=== PATIENT | male | born 1950 | race Caucasian/White ===

== ENCOUNTER 2019-06-05 01:04 | Emergency (ER) | payer MEDICARE ==
[~2019-06-05] VITALS: Ht 167.6 cm; Wt 81.6 kg
--- NOTE | 2019-06-05 01:36 | NUR ---
Patient discharged to home in stable conditon. Written and verbal after care instructions given. Patient verbalizes understanding of instructions. Ambulated from ER with stable gait. All belongings with patient.
[2019-06-05 01:37] VITALS: BP 137/81
== END 2019-06-05 01:38 | disposition home or self-care (01) ==
LOC: ER 01:09
DX: S41.112A Laceration without foreign body of left upper arm, initial encounter (principal); X58.XXXA Exposure to other specified factors, initial encounter; Y93.89 Activity, other specified; Y92.89 Other specified places as the place of occurrence of the external cause; Y99.8 Other external cause status
CPT/HCPCS: 12001; 99283; J3490; A4663

== ENCOUNTER 2019-06-09 16:57 | Emergency (ER) | payer MEDICARE ==
[~2019-06-09] VITALS: Ht 167.6 cm; Wt 86.2 kg
--- NOTE | 2019-06-09 17:16 | NUR ---
Patient discharged to home in stable condition with brisk steady. Written and verbal after care instructions given to patient. Patient verbalized understanding & compliance of instructions.
== END 2019-06-09 17:16 | disposition home or self-care (01) ==
LOC: ER 16:57
DX: S41.132D Puncture wound without foreign body of left upper arm, subsequent encounter (principal); X58.XXXD Exposure to other specified factors, subsequent encounter
CPT/HCPCS: A4663